=== PATIENT | male | born 1970 | race Caucasian/White ===

== ENCOUNTER 2017-01-18 15:16 | Emergency (ER) | payer BC ==
[~2017-01-18] VITALS: Ht 182.9 cm; Wt 109.4 kg
[~2017-01-18 15:16] MED LIST: DIAZ-165 PO; METH4PAK4 PO; OXYC-57 PO
[2017-01-18 15:19] VITALS: TEMP 36.7; Ht 182.9 cm; Wt 109.4 kg
[2017-01-18] MEDS ORDERED: MECLIZINE HCL 25 MG TAB PO STA (15:33)
[2017-01-18] MEDS ORDERED: SODIUM CHLORIDE 0.9% 1000ML 1,000 ML IV STA ×2 (15:33)
[2017-01-18] MEDS ORDERED: ONDANSETRON INJ 2 MG/ML 2 ML VIAL IV STA (15:33)
--- NOTE | 2017-01-18 15:51 | EMERGENCY ROOM VISIT NOTE ---
History Report prepared by [place]: Saloni Giles Under the Supervision of: Dr. Jim Nash M.D. First contact with patient: 15:22 Chief Complaint: CARDIAC ASSESSMENT Stated Complaint: CHEST PAIN,SOB,NAUSEA History of Present Illness The patient is a 46 year old male who presents to the Emergency Room with complaints of an episode of dizziness beginning one hour prior to arrival. 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 He states that he became very lightheaded, hot, sweaty and nauseous. He then vomited once and began experiencing shortness of breath and chest tightness. The patient states that he became dizzy and describes it as the room feels like it is spinning. The patient states that sitting still improves his symptoms and movement worsens his symptoms. He states that 3 weeks ago he experienced similar symptoms, however at that time the symptoms passed over quickly. He did not vomit at that time. He denies a headache or diarrhea. The patient does not have a history of vertigo. He denies head trauma, recent falls or extremity weakness. The patient is a type 2 diabetic. 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 A total of 10 systems reviewed and were otherwise negative. Past Medical & Surgical Medical Problems: (1) Type 2 diabetes mellitus Family History Patient reports no known family medical history. Social History Smoking Status: Never Smoker Smokeless Tobacco Use: No Marital Status: Housing Status: lives with family Occupation Status: employed Current/Historical Medications Scheduled Labetalol Hcl (Labetalol Hcl), 1 TAB PO BID Loratadine (Claritin), 10 MG PO DAILY Scheduled PRN Meclizine HCl (Meclizine HCl), 1 TAB PO Q6 PRN for Dizziness or Vertigo Allergies Coded Allergies: No Known Allergies (Unverified , 01/18/17) Physical Exam Vital Signs Date Time Temp Pulse Resp B/P (MAP) Pulse Ox O2 Delivery O2 Flow Rate FiO2 01/18/17 19:11 83 20 163/104 98 01/18/17 18:54 83 20 163/104 98 Room Air 01/18/17 18:24 83 19 149/101 95 Room Air 01/18/17 17:32 87 20 152/99 96 Room Air 01/18/17 16:40 96 20 162/98 97 Room Air 99 166/104 101 167/107 01/18/17 16:37 105 01/18/17 16:31 99 18 157/111 96 Room Air 01/18/17 16:29 Room Air 01/18/17 15:19 36.7 109 18 188/120 96 Room Air Physical Exam GENERAL: Patient is in no acute distress. HEENT: No acute trauma, normocephalic atraumatic, PERRL, no nystagmus, mucous membranes moist, no nasal congestion, no scleral icterus. NECK: No stridor, no adenopathy, no meningismus, trachea is midline. LUNGS: Clear to auscultation bilaterally, no wheeze, no rhonchi, breath sounds equal. HEART: Without murmurs gallops or rubs, regular rate and rhythm. ABDOMEN: Soft, nontender, bowel sounds positive, no hernias, no peritonitis. EXTREMITIES: No cyanosis or edema, full range of motion of all the joints without pain or difficulty, no signs for acute trauma. NEUROLOGIC: Oriented x 3, no acute motor or sensory deficits, no focal weakness. No facial droop or speech slur, no pronator drift or cerebellar dysfunction. SKIN: No rash, no jaundice, no diaphoresis. Medical Decision & Procedures ER Provider Diagnostic Interpretation: Radiology results as stated below per my review and radiologist interpretation: CT SCAN OF THE BRAIN WITHOUT IV CONTRAST CLINICAL HISTORY: Weakness. Change in mental status. COMPARISON STUDY: No priors. TECHNIQUE: Unenhanced axial CT scan of the brain is performed from the vertex to the skull base. Automated dose control exposure was utilized. CT DOSE: 614.27 mGy.cm FINDINGS: Brain parenchyma: The brain parenchyma is normal in appearance. There is no hemorrhage, mass effect, or evidence of acute territorial ischemia by CT criteria. Whipple-white matter is preserved. No extra-axial fluid collection is seen. Ventricles, sulci, cisterns: Normal in configuration. Intracranial vasculature: The visualized intracranial vasculature at the skull base is normal in appearance. Calvarium: Unremarkable. Sinuses and mastoids: There is mucosal thickening within a posterior left ethmoid sinus. The remaining visualized paranasal sinuses are clear. The mastoid air cells are well pneumatized. Orbits: The bony orbits are grossly intact. IMPRESSION: No acute intracranial abnormality. Electronically signed by: Jim Grady M.D. 01/18/2017 4:22 PM Dictated Date/Time: 01/18/2017 4:20 PM CHEST ONE VIEW PORTABLE CLINICAL HISTORY: Altered mental status ATYPICAL CHEST PAIN, SHORTNESS OF BREATH. COMPARISON STUDY: No previous studies for comparison. FINDINGS: The heart is normal in size. There is hilar enlargement. There is increased soft tissue at the level of the left AP window. There is a mild lobular contour of the right mediastinal tissues. Mediastinal and hilar adenopathy is suspected. CT scanning is recommended in follow-up. There is no failure. There is no focal pulmonary consolidation. There are no pleural effusions.[ IMPRESSION: Suspected mediastinal and hilar lymphadenopathy. CT scanning is recommended in follow-up Electronically signed by: Guzman Gonzalez M.D. 01/18/2017 3:48 PM Dictated Date/Time: 01/18/2017 3:47 PM Laboratory Results 01/18/17 16:05 Red Blood Count 5.27, Mean Corpuscular Volume 85.2, Mean Corpuscular Hemoglobin 29.6, Mean Corpuscular Hemoglobin Concent 34.7, Mean Platelet Volume 9.3, Neutrophils (%) (Auto) 69.0, Lymphocytes (%) (Auto) 17.9, Monocytes (%) (Auto) 8.8, Eosinophils (%) (Auto) 3.5, Basophils (%) (Auto) 0.5, Neutrophils # (Auto) 4.55, Lymphocytes # (Auto) 1.18, Monocytes # (Auto) 0.58, Eosinophils # (Auto) 0.23, Basophils # (Auto) 0.03 01/18/17 16:05 Test 01/18/17 16:05 01/18/17 16:09 White Blood Count 6.59 K/uL (4.8-10.8) Red Blood Count 5.27 M/uL (4.7-6.1) Hemoglobin 15.6 g/dL (14.0-18.0) Hematocrit 44.9 % (42-52) Mean Corpuscular Volume 85.2 fL (80-100) Mean Corpuscular Hemoglobin 29.6 pg (25-34) Mean Corpuscular Hemoglobin Concent 34.7 g/dl (32-36) Platelet Count 231 K/uL (130-400) Mean Platelet Volume 9.3 fL (7.4-10.4) Neutrophils (%) (Auto) 69.0 % Lymphocytes (%) (Auto) 17.9 % Monocytes (%) (Auto) 8.8 % Eosinophils (%) (Auto) 3.5 % Basophils (%) (Auto) 0.5 % Neutrophils # (Auto) 4.55 K/uL (1.4-6.5) Lymphocytes # (Auto) 1.18 K/uL (1.2-3.4) Monocytes # (Auto) 0.58 K/uL (0.11-0.59) Eosinophils # (Auto) 0.23 K/uL (0-0.5) Basophils # (Auto) 0.03 K/uL (0-0.2) RDW Standard Deviation 41.4 fL (36.4-46.3) RDW Coefficient of Variation 13.2 % (11.5-14.5) Immature Granulocyte % (Auto) 0.3 % Immature Granulocyte # (Auto) 0.02 K/uL (0.00-0.02) Anion Gap 9.0 mmol/L (3-11) Est Creatinine Clear Calc Drug Dose 122.9 ml/min Estimated GFR () 108.8 Estimated GFR (Non- 93.9 BUN/Creatinine Ratio 9.1 (10-20) Calcium Level 8.4 mg/dl (8.5-10.1) Total Bilirubin 0.5 mg/dl (0.2-1) Aspartate Amino Transf (AST/SGOT) 21 U/L (15-37) Alanine Aminotransferase (ALT/SGPT) 35 U/L (12-78) Alkaline Phosphatase 72 U/L (45-117) Total Protein 8.0 gm/dl (6.4-8.2) Albumin 3.7 gm/dl (3.4-5.0) Globulin 4.3 gm/dl (2.5-4.0) Albumin/Globulin Ratio 0.9 (0.9-2) Thyroid Stimulating Hormone (TSH) 1.290 uIu/ml (0.300-4.500) Bedside Troponin I 0.000 ng/ml (0-0.045) Laboratory results reviewed by me. Medications Administered Medications (Trade) Dose Ordered Sig/Chloe Route Start Time Stop Time Status Last Admin Dose Admin Ondansetron HCl (Zofran Inj) 4 mg NOW STAT IV 01/18/17 15:33 01/18/17 15:35 DC 01/18/17 16:04 4 MG Sodium Chloride 1,000 ml @ 999 mls/hr Q1H1M STAT IV 01/18/17 15:33 01/18/17 16:33 DC 01/18/17 16:04 999 MLS/HR Sodium Chloride 1,000 ml @ 200 mls/hr Q5H STAT IV 01/18/17 15:33 01/18/17 20:28 DC 01/18/17 17:54 200 MLS/HR Meclizine HCl (Antivert Tab) 25 mg NOW STAT PO 01/18/17 15:33 01/18/17 15:36 DC 01/18/17 16:04 25 MG Labetalol HCl (Normodyne IV) 20 mg NOW STAT IV 01/18/17 16:39 01/18/17 16:40 DC 01/18/17 17:42 20 MG Labetalol HCl (Normodyne Tab) 100 mg NOW ONCE PO 01/18/17 18:45 01/18/17 18:46 DC 01/18/17 18:52 100 MG ECG Indication: other (dizziness) Rate (beats per minute): 97 Rhythm: normal sinus Findings: no acute ischemic change, no ectopy ED Course 1527: The patient was evaluated in room A11. A complete history and physical exam was performed. 1533: Antivert Tab 25 mg PO, Sodium Chloride 1,000 ml @ 200 mls/hr IV, Sodium Chloride 1,000 ml @ 999 mls/hr IV, Zofran Inj 4 mg IV. 1639: Normodyne IV 20 mg IV. 1730: I reevaluated the patient. 1747: The patient has sarcoidosis which is why his chest X-Ray is abnormal. 1808: Orthostatic vitals are negative. 1843: The patient is feeling well and would like to go home. 1845: Normodyne Tab 100 mg PO. 1853: Reevaluated the patient. Discussed results and discharge instructions: He verbalized understanding and agreement. The patient is ready for discharge. Medical Decision The patient is a 46 year old male who presents to the ED with complaints of dizziness. Differential diagnoses considered include stroke, vertigo, electrolyte imbalance, dehydration, viral illness, dysrhythmia, anemia, infection. There is no leukocytosis or concerning anemia. Renal panel testing shows a mild hyperglycemia, the patient carries a history of diabetes. No kidney failure. No hepatitis. The patient appears to be in a euthyroid state. EKG shows a normal sinus rhythm, no acute ischemia. Cardiac enzyme testing times one is not consistent with acute cardiac injury. Orthostatic vital signs are negative. Chest film shows hilar adenopathy-the patient does have sarcoidosis. There was no pneumonia. Brain CT shows no acute bleed or mass effect. On exam, there were no focal neurologic deficits. The patient was noted to be hypertensive. The patient received IV saline, IV Zofran and oral meclizine. He eventually was given IV labetalol and then a dose of oral labetalol. The patient's blood pressure is somewhat improved, his symptoms have resolved and he is able to walk around without discomfort. He has no trouble with his balance, he no longer feels dizzy. The patient likely has vertigo, I suspect the elevated blood pressure could be part of the issue as well. He feels well now, he would like to be discharged home. I did talk with him at length about seeing his doctor for his blood pressure and symptoms. He will return for worsening symptoms. He is being prescribed meclizine for the dizziness, labetalol for his blood pressure. Medication Reconciliation: I attest that I have personally reviewed the patient' s current medication list. Blood Pressure Screening: Patient was found to have an elevated blood pressure and was referred to their primary doctor for recheck and further treatment. Impression Primary Impression: Vertigo Additional Impression: Hypertension Scribe Attestation The scribe's documentation has been prepared under my direction and personally reviewed by me in its entirety. I confirm that the note above accurately reflects all work, treatment, procedures, and medical decision making performed by me. Departure Information Dispostion Home / Self-Care Prescriptions Meclizine HCl (Meclizine HCl) 25 Mg Tab 1 TAB PO Q6 Y for Dizziness or Vertigo, #15 TAB Prov: Jim Nash M.D. 01/18/17 Labetalol Hcl (LABETALOL HCL) 100 Mg Tab 1 TAB PO BID for 30 Days, #60 TAB 5 Refills Prov: Jim Nash M.D. 01/18/17 Referrals Arcadio Linder III, M.D. (PCP) Forms IMPORTANT VISIT INFORMATION, Work Instructions Patient Instructions My [facility] Additional Instructions Labetalol 2x per day for the blood pressure Meclizine 1 tab every 6 hours for dizziness stay well hydrated rest see your doctor this week for a recheck and blood pressure check return if worsening Problem Qualifiers
[2017-01-18 16:19] LABS: BASO % 0.5 %; BASO ABS # 0.03 K/uL (0-0.2); COMPLETE YES; EOS % 3.5 %; HEMATOCRIT 44.9 % (42-52); IG% 0.3 %; LYMPH % 17.9 %; LYMPH ABS # 1.18 K/uL (1.2-3.4); MEAN CELL VOLUME 85.2 fL (80-100); MEAN CORPUSCULAR HEMOGLOBIN 29.6 pg (25-34); MEAN CORPUSCULAR HGB CONC 34.7 g/dl (32-36); MEAN PLATELET VOLUME 9.3 fL (7.4-10.4); MONO % 8.8 %; PLATELET COUNT 231 K/uL (130-400); RED BLOOD COUNT 5.27 M/uL (4.7-6.1); WHITE BLOOD COUNT 6.59 K/uL (4.8-10.8)
--- NOTE | 2017-01-18 16:23 | DIAGNOSTIC IMAGING REPORT ---
CT SCAN OF THE BRAIN WITHOUT IV CONTRAST CLINICAL HISTORY: Weakness. Change in mental status. COMPARISON STUDY: No priors. TECHNIQUE: Unenhanced axial CT scan of the brain is performed from the vertex to the skull base. Automated dose control exposure was utilized. CT DOSE: 614.27 mGy.cm FINDINGS: Brain parenchyma: The brain parenchyma is normal in appearance. There is no hemorrhage, mass effect, or evidence of acute territorial ischemia by CT criteria. Whipple-white matter is preserved. No extra-axial fluid collection is seen. Ventricles, sulci, cisterns: Normal in configuration. Intracranial vasculature: The visualized intracranial vasculature at the skull base is normal in appearance. Calvarium: Unremarkable. Sinuses and mastoids: There is mucosal thickening within a posterior left ethmoid sinus. The remaining visualized paranasal sinuses are clear. The mastoid air cells are well pneumatized. Orbits: The bony orbits are grossly intact. IMPRESSION: No acute intracranial abnormality. Electronically signed by: Jim Grady M.D. 01/18/2017 4:22 PM Dictated Date/Time: 01/18/2017 4:20 PM
[2017-01-18] MEDS ORDERED: LABETALOL HCL IV 5 MG/ML 20ML IV STA (16:39)
[2017-01-18 16:44] LABS: BUN/CREATININE RATIO 9.1 (10-20); CALCIUM 8.4 mg/dl (8.5-10.1); CREATININE 0.97 mg/dl (0.60-1.40); POTASSIUM 3.8 mmol/L (3.5-5.1)
[2017-01-18 16:53] LABS: ALB/GLOB RATIO 0.9 (0.9-2); THYROID STIMULATING HORMONE 1.29 uIu/ml (0.300-4.500)
[2017-01-18] MEDS ORDERED: LABETALOL HCL 100 MG TAB PO ONE (18:45)
[2017-01-18] MEDS ORDERED: ANT25 PO (18:52)
[2017-01-18] MEDS ORDERED: LABE100T23 PO (18:52)
[2017-01-18 19:11] VITALS: BP 163/104; PULSE 83; O2SAT 98
[2017-02-09] MEDS ORDERED: CLR10 PO (16:52)
== END 2017-01-18 19:11 | disposition home or self-care (01) ==
LOC: C.EDB 15:18 → C.EDA 19:11
DX: R42 Dizziness and giddiness (principal); I10 Essential (primary) hypertension; E11.9 Type 2 diabetes mellitus without complications; Z79.899 Other long term (current) drug therapy

== ENCOUNTER 2017-02-09 21:02 | Emergency (ER) | payer BC ==
[~2017-02-09] VITALS: Ht 180.3 cm; Wt 105.0 kg
[~2017-02-09 21:02] MED LIST changes: +ANT25 PO; +CLR10 PO; -DIAZ-165 PO; +LABE100T23 PO; -METH4PAK4 PO; -OXYC-57 PO
[2017-02-09 21:06] VITALS: TEMP 36.8; Ht 180.3 cm; Wt 105.0 kg
[2017-02-09] MEDS ORDERED: SODIUM CHLORIDE 0.9% 1000ML 1,000 ML IV STA ×2 (21:35)
[2017-02-09] MEDS ORDERED: KETOROLAC TROMETHAMINE 30 MG/ML VIAL IV STA (21:35)
[2017-02-09] MEDS ORDERED: MoRPHine SULFATE 4 MG/ML 1 ML CARP\\VIAL IV STA (21:35)
[2017-02-09] MEDS ORDERED: ONDANSETRON INJ 2 MG/ML 2 ML VIAL IV STA (21:35)
[2017-02-09 21:43] LABS: BASO % 0.4 %; BASO ABS # 0.03 K/uL (0-0.2); COMPLETE YES; EOS % 3.2 %; HEMATOCRIT 44.7 % (42-52); IG% 0.1 %; LYMPH % 17.2 %; MEAN CELL VOLUME 85.5 fL (80-100); MEAN CORPUSCULAR HEMOGLOBIN 30.2 pg (25-34); MEAN CORPUSCULAR HGB CONC 35.3 g/dl (32-36); MEAN PLATELET VOLUME 9.2 fL (7.4-10.4); MONO % 7.2 %; NEUT % 71.9 %; PLATELET COUNT 240 K/uL (130-400); RED BLOOD COUNT 5.23 M/uL (4.7-6.1); WHITE BLOOD COUNT 8.14 K/uL (4.8-10.8)
[2017-02-09] MEDS ORDERED: LABE100T23 PO (21:46)
[2017-02-09 21:48] VITALS: O2SAT 95
[2017-02-09 21:56] LABS: CALCIUM 9.5 mg/dl (8.5-10.1); CREATININE 1.5 mg/dl (0.60-1.40); POTASSIUM 4.5 mmol/L (3.5-5.1)
--- NOTE | 2017-02-09 22:38 | DIAGNOSTIC IMAGING REPORT ---
ABDOMEN AND PELVIS CT WITHOUT CONTRAST CT DOSE: 2019.22 mGy.cm HISTORY: right flank pain TECHNIQUE: Multiaxial CT images of the abdomen and pelvis were performed without the use of intravenous and oral contrast according to the standard department stone protocol. COMPARISON STUDY: None. FINDINGS: There are 2 subcentimeter nodules within the right lower lobe with the largest measuring 6 mm. Bilateral hilar and subcarinal/mediastinal lymphadenopathy. Dominant subcarinal lymph node measures 3.1 x 2.1 cm. No suspicious lytic or blastic osseous lesions. Mild hepatic steatosis. The unenhanced spleen, adrenal glands, pancreas, gallbladder, and left kidney are unremarkable. Mild right perinephric edema. Mild right hydroureteronephrosis. Punctate stone either within or just beyond the right ureterovesical junction. This is best seen on image 157. Mild bladder wall thickening is likely due to underdistention. No renal calculi identified. There is periportal, retroperitoneal, gastrohepatic, perisplenic, bilateral iliac, and left inguinal lymphadenopathy. Dominant left external iliac lymph node measures 2.6 x 1.6 cm. Dominant portacaval lymph node measures 4.6 x 1.8 cm. Dominant gastrohepatic lymph node measures 2.4 x 1.6 cm. Suboptimal evaluation for bowel pathology due to the lack of intravenous and oral contrast. However, there is no definite bowel wall thickening or obstruction. Normal appendix. IMPRESSION: 1. A punctate stone either within or beyond the right ureterovesical junction. There is mild right hydroureteronephrosis. 2. No renal calculi identified. 3. Lymphadenopathy within the chest, abdomen, and pelvis as described above. This is highly suspicious for a neoplastic process such as lymphoma. 4. There are 2 subcentimeter nodules within the right lower lobe with the largest measuring 6 mm. Please refer to the chart below for recommended follow-up. Please refer to below summary of Fleischner criteria recommendations for follow-up of incidental CT nodules (Tiny Goldstein, Guidelines for management of small pulmonary nodules detected on CT scans: A statement from the Fleischner Society, Radiology 237: [phone].) SOLID NODULES Solitary nodule size: <6 mm * Low risk patients: no follow-up needed * high risk patients: optional CT at 12 months Solitary nodule size: 6-8 mm * Low risk patients: follow-up at 6-12 months, then consider further follow-up at 18-24 months * high risk patients: initial follow-up CT at 6-12 months and then at 18-24 months if no change Solitary nodule size: >8 mm * either low or high risk patients - consider follow-up CT at 3 months, and/or CT-PET, and/or biopsy Multiple nodules size: <6 mm * Low risk patients: no routine follow-up * high risk patients: optional CT at 12 months Multiple nodules size: 6-8 mm * Low risk patients: follow-up at 3-6 months, then consider further follow-up at 18-24 months * high risk patients: follow-up at 3-6 months, then at 18-24 months if no change Multiple nodules size: >8 mm * Low risk patients: follow-up at 3-6 months, then consider further follow-up at 18-24 months * high risk patients: follow-up at 3-6 months, then at 18-24 months if no change Note: newly detected indeterminate nodule in persons 35 years of age or older. * Low risk patients: minimal or absent history of smoking and/or other known risk factors * high risk patients: history of smoking or of other known risk factors (e.g. first degree relative with lung cancer, or exposure to asbestos, radon, uranium) * if a nodule up to 8 mm is partly solid or is ground glass further follow-up is required after 24 months to exclude possible slow growing adenocarcinoma (CHARMAINE) SUBSOLID NODULES Solitary pure ground-glass nodule * nodule size <6 mm - no CT follow-up required * nodule size >=6 mm - follow-up CT at 6-12 months, then every 2 years until 5 years Solitary part-solid nodule * nodule size <6 mm - no CT follow-up required * nodule size >=6 mm - follow-up CT at 3-6 months. If unchanged, and solid component remains <6 mm, then annual follow-up for 5 years Multiple subsolid nodules * nodule size <6 mm - follow-up CT at 3-6 months, consider further follow-up at 2 and 4 years if stable * nodule size >=6 mm - follow-up CT at 3-6 months, subsequent management based on the most suspicious nodule(s) Electronically signed by: Mando Starkey M.D. 02/09/2017 10:37 PM Dictated Date/Time: 02/09/2017 10:28 PM
[2017-02-10 01:11] LABS: URINE APPEARANCE CLOUDY (CLEAR); URINE BILIRUBIN NEG (NEG); URINE COLOR YELLOW; URINE EPITHELIAL CELL AUTO 20-30 /lpf (0-5); URINE NITRITE NEG (NEG); URINE SPECIFIC GRAVITY 1.024 (1.000-1.030); UROBILINOGEN NEG (NEG); ZZUR CULT IF INDIC CLEAN CATCH NO
[2017-02-10 01:15] LABS: MANUAL MICROSCOPIC REQUIRED? NO; REVIEW REQ? NO
[2017-02-10] MEDS ORDERED: OXYC1TAB3 PO (01:39)
[2017-02-10] MEDS ORDERED: ONDANSETRON HOME PACK 4MG OD TAB PO ONE (01:45)
[2017-02-10] MEDS ORDERED: OXYCODONE IR HOME PACK PO ONE (01:45)
[2017-02-10 01:51] VITALS: BP 139/86; PULSE 87; O2SAT 96
--- NOTE | 2017-02-10 05:10 | EMERGENCY ROOM VISIT NOTE ---
History First contact with patient: 21:26 Chief Complaint: FLANK PAIN Stated Complaint: KIDNEY STONE History of Present Illness The patient is a 46 year old male who presents to the Emergency Room with complaints of sudden onset of right flank pain that raised his groin at 6 PM described as aching, ranging in severity currently 8 out of 10. Nothing makes it better or worse. Patient denies chest pain, dyspnea, fever, chills, cough, congestion, penile pain, testicular pain. Patient does have sarcoidosis. Review of Systems See HPI for pertinent positives & negatives. A total of 10 systems reviewed and were otherwise negative. Past Medical/Surgical History Medical Problems: (1) Type 2 diabetes mellitus Family History Patient reports no known family medical history. Social History Smoking Status: Never Smoker Drug Use: none Marital Status: Housing Status: lives with family Occupation Status: employed Current/Historical Medications Scheduled Labetalol Hcl (Labetalol Hcl), 100 MG PO BID Scheduled PRN Loratadine (Claritin), 10 MG PO DAILY PRN for Allergy Symptoms Oxycodone Ir (Roxicodone Ir), 1-2 TAB PO Q4H PRN for Severe Pain Allergies Coded Allergies: No Known Allergies (Unverified , 01/18/17) Physical Exam Vital Signs Date Time Temp Pulse Resp B/P (MAP) Pulse Ox O2 Delivery O2 Flow Rate FiO2 02/10/17 01:51 87 18 139/86 96 02/10/17 00:14 93 18 139/80 95 Room Air 02/09/17 22:27 92 16 158/99 96 Room Air 02/09/17 21:56 89 02/09/17 21:48 95 Room Air 02/09/17 21:06 36.8 82 16 178/98 97 Room Air Pain Rating (0-10): 0 Physical Exam VITALS: Vitals are noted on the nurse's note and reviewed by myself. Vital signs hypertensive GENERAL: Pleasant male who appears in pain, nondiaphoretic, well-developed well- nourished. SKIN: The skin was without rashes, erythema, edema, or bruising. There is no tenting of the skin. Capillary reflex less than 2 seconds. HEAD: Normocephalic atraumatic. EARS: External auditory canals clear, tympanic membranes pearly mejia without erythema or effusion bilaterally. EYES: Pupils equal round and reactive to light and accommodation. Conjunctivae without injection, sclerae without icterus. Extraocular movements intact. NOSE: Patent, turbinates without inflammation or discharge. MOUTH: Mucous membranes moist. Pharynx without erythema or exudate. Uvula midline. Airway patent. Tongue does not deviate. NECK: Supple without nuchal rigidity. No lymphadenopathy. No thyromegaly. Cervical spine is nontender. No JVD. HEART: Regular rate and rhythm without murmurs gallops or rubs. LUNGS: Clear to auscultation bilaterally without wheezes, rales or rhonchi. No dullness to percussion. No retractions or accessory muscle use. ABDOMEN: Positive bowel sounds x 4. Normal tympanic percussion. Soft, nontender, without masses or organomegaly. Cardenas sign negative. No guarding or rebound tenderness. No CVA tenderness MUSCULOSKELETAL: No muscle atrophy, erythema, or edema noted. NEURO: Patient was alert and oriented to person place and time. Normal sensation to light and sharp touch. No focal neurological deficits. Medical Decision & Procedures Laboratory Results 02/09/17 21:25 Red Blood Count 5.23, Mean Corpuscular Volume 85.5, Mean Corpuscular Hemoglobin 30.2, Mean Corpuscular Hemoglobin Concent 35.3, Mean Platelet Volume 9.2, Neutrophils (%) (Auto) 71.9, Lymphocytes (%) (Auto) 17.2, Monocytes (%) (Auto) 7.2, Eosinophils (%) (Auto) 3.2, Basophils (%) (Auto) 0.4, Neutrophils # (Auto) 5.85, Lymphocytes # (Auto) 1.40, Monocytes # (Auto) 0.59, Eosinophils # (Auto) 0.26, Basophils # (Auto) 0.03 02/09/17 21:25 Test 02/09/17 21:25 02/10/17 00:56 White Blood Count 8.14 K/uL (4.8-10.8) Red Blood Count 5.23 M/uL (4.7-6.1) Hemoglobin 15.8 g/dL (14.0-18.0) Hematocrit 44.7 % (42-52) Mean Corpuscular Volume 85.5 fL (80-100) Mean Corpuscular Hemoglobin 30.2 pg (25-34) Mean Corpuscular Hemoglobin Concent 35.3 g/dl (32-36) Platelet Count 240 K/uL (130-400) Mean Platelet Volume 9.2 fL (7.4-10.4) Neutrophils (%) (Auto) 71.9 % Lymphocytes (%) (Auto) 17.2 % Monocytes (%) (Auto) 7.2 % Eosinophils (%) (Auto) 3.2 % Basophils (%) (Auto) 0.4 % Neutrophils # (Auto) 5.85 K/uL (1.4-6.5) Lymphocytes # (Auto) 1.40 K/uL (1.2-3.4) Monocytes # (Auto) 0.59 K/uL (0.11-0.59) Eosinophils # (Auto) 0.26 K/uL (0-0.5) Basophils # (Auto) 0.03 K/uL (0-0.2) RDW Standard Deviation 40.6 fL (36.4-46.3) RDW Coefficient of Variation 13.0 % (11.5-14.5) Immature Granulocyte % (Auto) 0.1 % Immature Granulocyte # (Auto) 0.01 K/uL (0.00-0.02) Anion Gap 5.0 mmol/L (3-11) Est Creatinine Clear Calc Drug Dose 76.7 ml/min Estimated GFR () 64.2 Estimated GFR (Non- 55.4 BUN/Creatinine Ratio 8.0 (10-20) Calcium Level 9.5 mg/dl (8.5-10.1) Total Bilirubin 0.6 mg/dl (0.2-1) Direct Bilirubin 0.1 mg/dl (0-0.2) Aspartate Amino Transf (AST/SGOT) 23 U/L (15-37) Alanine Aminotransferase (ALT/SGPT) 40 U/L (12-78) Alkaline Phosphatase 79 U/L (45-117) Total Protein 8.1 gm/dl (6.4-8.2) Albumin 3.8 gm/dl (3.4-5.0) Urine Color YELLOW Urine Appearance CLOUDY (CLEAR) Urine pH 5.0 (4.5-7.5) Urine Specific [place] 1.024 (1.000-1.030) Urine Protein NEG (NEG) Urine Glucose (UA) 3+ (NEG) Urine Ketones TRACE (NEG) Urine Occult Blood NEG (NEG) Urine Nitrite NEG (NEG) Urine Bilirubin NEG (NEG) Urine Urobilinogen NEG (NEG) Urine Leukocyte Esterase NEG (NEG) Urine WBC (Auto) 1-5 /hpf (0-5) Urine RBC (Auto) 0-4 /hpf (0-4) Urine Hyaline Casts (Auto) 1-5 /lpf (0-5) Urine Epithelial Cells (Auto) 20-30 /lpf (0-5) Urine Bacteria (Auto) NEG (NEG) Medications Administered Medications (Trade) Dose Ordered Sig/Chloe Route Start Time Stop Time Status Last Admin Dose Admin Morphine Sulfate (MoRPHine SULFATE INJ) 4 mg NOW STAT IV 02/09/17 21:35 02/09/17 21:38 DC 02/09/17 21:43 4 MG Ondansetron HCl (Zofran Inj) 4 mg NOW STAT IV 02/09/17 21:35 02/09/17 21:38 DC 02/09/17 21:42 4 MG Ketorolac Tromethamine (Toradol Inj) 30 mg NOW STAT IV 02/09/17 21:35 02/09/17 21:38 DC 02/09/17 21:42 30 MG Sodium Chloride 1,000 ml @ 999 mls/hr Q1H1M STAT IV 02/09/17 21:35 02/09/17 22:35 DC 02/09/17 21:42 999 MLS/HR Sodium Chloride 1,000 ml @ 125 mls/hr Q8H STAT IV 02/09/17 21:35 02/10/17 01:58 DC 02/09/17 21:42 125 MLS/HR Oxycodone HCl (Roxicodone Immediate Rel 5MG Home Pack) 1 homepack UD ONCE PO 02/10/17 01:45 02/10/17 01:46 DC 02/10/17 01:49 1 HOMEPACK Ondansetron HCl (ZOFRAN ODT 4MG Home Pack) 1 homepack UD ONCE PO 02/10/17 01:45 02/10/17 01:46 DC 02/10/17 01:49 1 HOMEPACK ED Course Prior records/ancillary studies reviewed. Triage Nursing notes reviewed. Additional history obtained from the family. The patient's history was concerning for right flank pain. Differential diagnosis: Etiologies such as renal colic, appendicitis, diverticulitis, mesenteric ischemia, aortic pathology, infections, inflammatory bowel disease, PUD, biliary pathology, UTI, as well as others were entertained. Physical examination findings: As above. ER treatment provided: Morphine, Zofran, IV fluids On reassessment the patient felt better. Diagnostic interpretation by me: The labs revealed hyperglycemia without DKA. Urinalysis revealed no signs of urine infection. There was no sign of UTI. Imaging studies: CT of the abdomen and pelvis as above. [~ rep ct add3]] ABDOMEN AND PELVIS CT WITHOUT CONTRAST CT DOSE: 2019.22 mGy.cm HISTORY: right flank pain TECHNIQUE: Multiaxial CT images of the abdomen and pelvis were performed without the use of intravenous and oral contrast according to the standard department stone protocol. COMPARISON STUDY: None. FINDINGS: There are 2 subcentimeter nodules within the right lower lobe with the largest measuring 6 mm. Bilateral hilar and subcarinal/mediastinal lymphadenopathy. Dominant subcarinal lymph node measures 3.1 x 2.1 cm. No suspicious lytic or blastic osseous lesions. Mild hepatic steatosis. The unenhanced spleen, adrenal glands, pancreas, gallbladder, and left kidney are unremarkable. Mild right perinephric edema. Mild right hydroureteronephrosis. Punctate stone either within or just beyond the right ureterovesical junction. This is best seen on image 157. Mild bladder wall thickening is likely due to underdistention. No renal calculi identified. There is periportal, retroperitoneal, gastrohepatic, perisplenic, bilateral iliac, and left inguinal lymphadenopathy. Dominant left external iliac lymph node measures 2.6 x 1.6 cm. Dominant portacaval lymph node measures 4.6 x 1.8 cm. Dominant gastrohepatic lymph node measures 2.4 x 1.6 cm. Suboptimal evaluation for bowel pathology due to the lack of intravenous and oral contrast. However, there is no definite bowel wall thickening or obstruction. Normal appendix. IMPRESSION: 1. A punctate stone either within or beyond the right ureterovesical junction. There is mild right hydroureteronephrosis. 2. No renal calculi identified. 3. Lymphadenopathy within the chest, abdomen, and pelvis as described above. This is highly suspicious for a neoplastic process such as lymphoma. 4. There are 2 subcentimeter nodules within the right lower lobe with the largest measuring 6 mm. Please refer to the chart below for recommended follow-up. It appears that the patient has isolated renal colic from a right sided stone. Patient's pain was under control. He requested to leave. I felt this is reasonable. Patient is known sarcoidosis. He was advised that the CT findings and verbalized understanding of this. He was advised to follow-up urology in a few days or here in the ER sooner for severe pain, fevers, vomiting, worsening signs or symptoms or as needed.By the evaluation outlined above emergent etiologies such as appendicitis, diverticulitis, mesenteric ischemia, aortic pathology, infections, inflammatory bowel disease, PUD, biliary pathology, UTI, as well as others were deemed relatively unlikely. The pt informed about the findings as listed above. All questions were answered and [] pleased with the treatment. Return instructions were outlined and the patient was discharged in stable condition. Outpatient prescription management: Oxy IR 5mg 1-2 po Q4 hrs prn Zofran Referral: The pt was referred to [facility] for follow up care regarding their stone. or The patient was referred back to their primary care physician for follow-up in 2 to 3 days for a recheck of the current condition. Case reviewed with my attending Medical Decision As above Impression Primary Impression: Renal colic on right side Departure Information Dispostion Home / Self-Care Condition GOOD Prescriptions Oxycodone Ir (Roxicodone Ir) 5 Mg Tab 1-2 TAB PO Q4H Y for Severe Pain, #12 TAB initial course Prov: Saima Santos ., DENSI 02/10/17 Referrals Jason Graff M.D. Forms HOME CARE DOCUMENTATION FORM, IMPORTANT VISIT INFORMATION Patient Instructions Kidney Stones - [facility], My [facility] Additional Instructions DO NOT drive, drink alcohol, operate machinery, or perform dangerous activities today. You were given medications in the ER that can affect your ability to safely function or operate a vehicle. Oxycodone Immediate Release (OxyIR) 5mg: Take 1-2 pills every four hours for pain. Avoid alcohol, operating machinery or dangerous equipment, working on ladders or roofs, DRIVING, or situations where being under the influence may be dangerous. It is recommended to use an jkki-beg-vajzoqe stool softener such as Colace, 100mg twice daily while taking this medication to avoid constipation Ibuprofen(Motrin, Advil) may be used for fever or pain. Use 600mg every six hours as needed. Take with food. Avoid using more than 2400mg in a 24 hour period. Do not use 2400mg per day for more than three consecutive days without physician direction. Prolonged inappropriate use can lead to stomach upset or ulcers. This medication can be taken if you need to drive, work, or perform activities which may be dangerous when taking narcotic pain medication. (AND/OR) Acetaminophen(Tylenol) may be used for fever or pain. Use 1000mg every six hours as needed. Avoid using more than 3000mg in a 24 hour period. This medication can be taken if you need to drive, work, or perform activities which may be dangerous when taking narcotic pain medication. Strain your urine and collect all the stones or debris for the urologists. Rest and avoid strenuous activity until your stone passes and symptoms resolve. Drink plenty of fluids. Continue current medications. Return to the ER for worsening abdominal or back pain, vomiting, fevers, passing out, or as needed. Follow up with [facility] tomorrow, [phone], to arrange a visit.
== END 2017-02-10 01:51 | disposition home or self-care (01) ==
LOC: C.EDB 21:03
DX: N23 Unspecified renal colic (principal); E11.9 Type 2 diabetes mellitus without complications; Z79.899 Other long term (current) drug therapy

== ENCOUNTER 2022-05-27 02:52 | Observation (INO) ==
[2022-05-27] MEDS ORDERED: methylPREDNISolone 125 MG/2 ML VIAL IV STA (03:13)
--- NOTE | 2022-05-27 03:13 | Emergency Department Note ---
History of Present Illness General Chief complaint: Respiratory Problems Stated complaint: HARD TO BREATHE Time Seen by Provider: 05/27/22 03:00 History of Present Illness Maximum Pain Intensity: 3 51-year-old male presents emergency department with longstanding history of sarcoidosis hypertension and diabetes. Patient is followed by a research chief engineer in [place]. He called his research chief engineer today and was placed on prednisone he is taken 2 doses. He states that he feels shortness of breath occasionally generalized fatigue and weakness. Patient denies hemoptysis, pleuritic chest p ain or dyspnea on exertion. Patient denies any exposure to COVID he is unvaccinated against COVID-19. Patient presents this evening stating shortness of breath Home Medications Medication Instructions Recorded Confirmed Type lisinopril 10 mg tablet 10 mg PO DAILY 10/27/20 06/11/21 History albuterol sulfate 90 mcg/actuation 2 inh inhalation Q6 PRN Shortness 06/11/21 06/11/21 History aerosol inhaler (Ventolin HFA) Of Breath empagliflozin 25 mg tablet 25 mg PO DAILY 05/27/22 05/27/22 History (Jardiance) mometasone-formoterol HFA 100 2 puff inhalation BID 05/27/22 05/27/22 History mcg-5 mcg/actuation aerosol inhaler (Dulera) prednisone 20 mg tablet 40 mg PO DIRECTED 05/27/22 05/27/22 History tiotropium bromide 1.25 1 puff inhalation DAILY 05/27/22 05/27/22 History mcg/actuation mist for inhalation (Spiriva Respimat) Allergies Allergy/AdvReac Type Severity Reaction Status Date / Time No Known Allergies Allergy Unverified 06/11/21 07:36 Past Med/Surg History Medical History Asthma HLD (hyperlipidemia) Hypertension Sarcoidosis Type 2 diabetes mellitus Surgical History No pertinent past surgical history Family History Other Heart disease Social History Smoking Status: Never smoker Preferred Language: Pashto Feels Safe at Home: Yes Review of Systems A total of 10 systems reviewed and were otherwise negative Constitutional: + body aches; no fever Respiratory: + dyspnea Cardiovascular: no chest pain Physical Exam Vital Signs Vital Signs - 24 hr 05/27/22 02:53 05/27/22 03:10 05/27/22 03:29 Temperature 36.2 C L Temperature Source Temporal Artery Scan Pulse Rate 96 H Pulse Rate from SpO2 Sensor Respiratory Rate 20 Respiratory Effort / Characteristics Non-Labored Respiratory Depth Normal Blood Pressure 149/108 H Blood Pressure Mean 121 Pulse Oximetry 96 Oxygen Delivery Method Room Air Room Air Sepsis Recent Fever Within 48 Hours No Sepsis New/Unexplained Change in Mental Status N/A Sepsis Action Taken by Nursing No Action Required 05/27/22 03:10 05/27/22 03:20 Temperature Temperature Source Pulse Rate 92 H 91 H Pulse Rate from SpO2 Sensor 92 H 89 Respiratory Rate 22 19 Respiratory Effort / Characteristics Respiratory Depth Blood Pressure Blood Pressure Mean Pulse Oximetry 95 96 Oxygen Delivery Method Sepsis Recent Fever Within 48 Hours Sepsis New/Unexplained Change in Mental Status Sepsis Action Taken by Nursing GENERAL: Patient is awake alert in no acute distress patient is resting comfortably and showing no signs of anxiety EYES: The conjunctivae are clear. The pupils are round and reactive. EARS, NOSE, MOUTH AND THROAT: The nose is without any evidence of any deformity. Mucous membranes are moist. Tongue is midline. NECK: The neck is nontender and supple. RESPIRATORY: Normal respiratory effort is noted there is no evidence of wheezing rhonchi or rales CARDIOVASCULAR: Regular rate and rhythm noted there no murmurs rubs or gallops normal S1 normal S2. GASTROINTESTINAL: The abdomen is soft. Abdomen is nontender. PELVIS: The Pelvis is stable. No tenderness to palpation is noted. BACK: No midline tenderness or or step-off noted range of motion in flexion extension as well as rotation no signs of muscle spasm noted MUSCULOSKELETAL/EXTREMITIES: There is no evidence of gross deformity full range of motion is noted in the hips and shoulders. SKIN: There is no obvious evidence of any rash. There are no petechiae, pallor or cyanosis noted. NEUROLOGIC: Patient is awake alert and oriented x3 strength is symmetric Course Reevaluation(s) Reevaluation #1: Patient was started on IV Rocephin and Zithromax was also given IV Solu-Medrol. Patient has a history of sarcoidosis, patient have a right lower lobe infiltrate and was started on IV antibiotics. Patient is resting comfortably not hypoxic. The case was discussed with the [facility] hospitalist for admission Time: 05:21 Administered Medications Azithromycin 500 mg/ Dextrose 255 mls @ 127.5 mls/hr IV NOW STA Stop: 05/27/22 05:52 Last Admin: 05/27/22 04:40 Dose: 127.5 mls/hr Documented By: GUERITA Discontinued Medications Ceftriaxone Sodium (Rocephin) 2,000 mg in 70 mls @ 140 mls/hr IV NOW STA Stop: 05/27/22 04:22 Last Admin: 05/27/22 04:19 Dose: 140 mls/hr Documented By: GUERITA Methylprednisolone (Methylprednisolone 125 Mg/2 Ml Vial) 125 mg IV NOW STA Stop: 05/27/22 03:14 Last Admin: 05/27/22 03:17 Dose: 125 mg Documented By: RAGINI Medical Decision Making Medical Records Attestation: I reviewed the patient's medical records. Home Medications Current Medication List: was personally reviewed by me Laboratory Data Attestation: I reviewed the patient's lab results. Result diagrams: 05/27/22 03:15 05/27/22 03:15 Lab Results 05/27/22 05/27/22 05/27/22 Range/Units 03:15 03:15 03:20 WBC 5.40 (4.8-10.8) K/ul RBC 6.03 (4.63-6.08) M/uL Hgb 17.0 (14.0-18.0) g/dl Hct 50.7 (40.1-51.0) % MCV 84.1 (80.0-100.0) fL MCH 28.2 (25.0-34.0) pg MCHC 33.5 (32.0-36.0) g/dL RDW Std Deviation 43.4 (36.4-46.3) fL RDW Coeff of Lisa 14.3 (11.5-14.5) % Plt Count 288 (130-400) K/uL MPV 8.8 L (9.4-12.4) fL Immature Gran % (Auto) 0.4 % Neut % (Auto) 75.8 % Lymph % (Auto) 15.4 % [place] % (Auto) 7.6 % Eos % (Auto) 0.4 % Baso % (Auto) 0.4 % Neut # (Auto) 4.10 (1.4-6.5) K/uL Lymph # (Auto) 0.83 L (1.2-3.4) K/uL [place] # (Auto) 0.41 (0.24-0.82) K/uL Eos # (Auto) 0.02 (0-0.50) K/uL Baso # (Auto) 0.02 (0-0.2) K/uL Immature Gran # (Auto) 0.02 (0.00-0.02) K/uL Sodium 134 L (136-145) mmol/L Potassium 4.4 (3.5-5.1) mmol/L Chloride 98 (98-107) mmol/L Carbon Dioxide 22 (21-32) mmol/L Anion Gap 14 H (3-11) BUN 19 (6-23) mg/dl Creatinine 0.91 (0.6-1.4) mg/dl Est Cr Clr Drug Dosing Not Reportable Est GFR ( Amer) 113.5 ml/min Est GFR (Non-Af Amer) 97.9 ml/min BUN/Creatinine Ratio 20.9 H (10-20) Glucose 236 H (70-99(Fasting)) mg/dl Calcium 10.3 H (8.5-10.1) mg/dl Total Bilirubin 0.8 (0.2-1.0) mg/dl AST 19 (13-39) U/L ALT 21 (7-52) U/L Alkaline Phosphatase 183 H (34-104) U/L Total Protein 8.4 H (6.0-8.3) gm/dl Albumin 3.6 (3.4-5.0) gm/dl Globulin 4.8 H (2.5-4.0) gm/dl Albumin/Globulin Ratio 0.8 L (0.9-2) SARS-CoV-2, RNA, NAAT NEGATIVE (NEGATIVE) Imaging Data Attestation: I personally reviewed and interpreted this imaging study as follows: ECG Data Attestation: I personally reviewed and interpreted this ECG as follows: Additional Comments: EKG interpreted by me normal sinus rhythm rate of 93 normal intervals normal axis no obvious ST segment elevation or depression MDM Narrative Medical decision making differential diagnosis includes upper respiratory tract infection, pneumonia, bronchitis, COVID, metabolic derangement, dehydration, an emia. Plan is to check labs, EKG, chest x-ray, observe Patient was evaluated for shortness of breath has a history of sarcoid there is a questionable right lower lobe infiltrate on x-ray he was given antibiotics and steroids. The case was discussed with the hospitalist from [facility]. My concern is that the patient may have an early pneumonia due to his symptoms and his history of lung disease. He will be admitted for further evaluation and treatment Impression & Plan Community acquired pneumonia, Sarcoidosis of lung Discharge Plan Visit Data Chief Complaint: Respiratory Problems Stated Complaint: HARD TO BREATHE ED Provider: Ferny Moss Discharge Problem: Community acquired pneumonia, Sarcoidosis of lung Patient Disposition: Being Evaluated by Hospitalist Forms Stand Alone Forms: My [facility] Prescriptions Prescriptions: No Action lisinopril 10 mg tablet 10 mg PO DAILY albuterol sulfate [Ventolin HFA] 90 mcg/actuation HFA aerosol inhaler 2 inh INHALATION Q6 MDD 8 puffs PRN (Reason: Shortness Of Breath) prednisone 20 mg tablet 40 mg PO DIRECTED Rx Instructions: prednisone 40mg po daily x 5 days Dulera 100-5 mcg/actuation HFA aerosol inhaler 2 puff INHALATION BID Jardiance 25 mg tablet 25 mg PO DAILY Spiriva Respimat 1.25 mcg/actuation mist 1 puff INHALATION DAILY Referrals Referrals: Arcadio Linder MD [Primary Care Provider] -
[2022-05-27 03:34] LABS: Basophils # (auto) 0.02 K/uL (0-0.2); Basophils % (auto) 0.4 %; Eosinophils # (auto) 0.02 K/uL (0-0.50); Eosinophils % (auto) 0.4 %; Hematocrit (blood only) 50.7 % (40.1-51.0); Immature Granulocytes # (auto) 0.02 K/uL (0.00-0.02); Immature Granulocytes % (auto) 0.4 %; Lymphocytes # (auto) 0.83 K/uL (1.2-3.4); Lymphocytes % (auto) 15.4 %; Mean Corpuscular Hemoglobin 28.2 pg (25.0-34.0); Mean Corpuscular Hgb Conc 33.5 g/dL (32.0-36.0); Mean Corpuscular Volume 84.1 fL (80.0-100.0); Mean Platelet Volume 8.8 fL (9.4-12.4); Monocytes # (auto) 0.41 K/uL (0.24-0.82); Monocytes % (auto) 7.6 %; Neutrophils % (auto) 75.8 %; Platelet Count 288 K/uL (130-400); RDW Coefficient of Variation 14.3 % (11.5-14.5); RDW Standard Deviation 43.4 fL (36.4-46.3); Red Blood Count 6.03 M/uL (4.63-6.08)
[2022-05-27 03:53] LABS: Alanine Aminotransferase 21 U/L (7-52); Albumin Globulin Ratio 0.8 (0.9-2); Albumin Level 3.6 gm/dl (3.4-5.0); Alkaline Phosphatase 183 U/L (34-104); Anion Gap 14 (3-11); Aspartate Aminotransferase 19 U/L (13-39); BUN Creatinine Ratio 20.9 (10-20); Bilirubin,Total 0.8 mg/dl (0.2-1.0); Blood Urea Nitrogen 19 mg/dl (6-23); Calcium 10.3 mg/dl (8.5-10.1); Carbon Dioxide 22 mmol/L (21-32); Chloride 98 mmol/L (98-107); Est GFR (African American) 113.5 ml/min; Est GFR (Non-African American) 97.9 ml/min; Globulin 4.8 gm/dl (2.5-4.0); Glucose 236 mg/dl (70-99(Fasting)); Potassium 4.4 mmol/L (3.5-5.1); Sodium 134 mmol/L (136-145); Total Protein 8.4 gm/dl (6.0-8.3)
[2022-05-27] MEDS ORDERED: cefTRIAXone SODIUM 2,000 MG/70 ML BAG IV STA (03:53)
[2022-05-27] MEDS ORDERED: AZITHROMYCIN 500 MG in DEXTROSE 5% 250 ML IV STA (03:53)
[2022-05-27] MEDS ORDERED: OPTIRAY 320 500ml IV ONE (05:58)
[2022-05-27] MEDS ORDERED: NITROGLYCERIN SL 0.4 MG/TAB TAB SL PRN (06:27)
[2022-05-27] MEDS ORDERED: ACETAMINOPHEN 325 MG TAB PO PRN (06:27)
[2022-05-27] MEDS ORDERED: ALBUTEROL HFA 8 GM INHALER INH PRN (06:27)
[2022-05-27] MEDS ORDERED: POLYETHYLENE (MIRALAX) 17 GM PACK PO PRN (06:27)
[2022-05-27] MEDS ORDERED: SODIUM CHLORIDE 0.9% 1000ML 1,000 ML IV SCH (06:27)
--- NOTE | 2022-05-27 06:48 | History and Physical Report ---
DATE OF ADMISSION: 05/27/2022. CHIEF COMPLAINT: Shortness of breath. HISTORY OF PRESENT ILLNESS: This is a 51-year-old male with past medical history significant for type 2 diabetes, hyperlipidemia, sinus congestion, history of COPD/Asthma, sarcoidosis, who presents with shortness of breath. The patient says he is getting short of breath since last 2 weeks, it is progressively getting worse. He is not able to ambulate much, because of shortness of breath. He does have pain, he says it is in his lungs, mostly on the right lung, even when taking regular breaths. He has chronic cough, but the cough tone has changed. Denies any fever or chills. Currently, he is saturating okay on room air. He was prescribed prednisone by pulmonary at [place] for 5 days . He just took one dose. As it is not getting better, he came to the hospital here. He currently has some mild headache.No blurred visions, no earache. He has chronic runny nose. Had sore throat the last week a couple of days, but resolved now. No difficulty swallowing. Appetite is okay. No nausea, no vomiting. Has some abdominal pain when he bends down. Has some mild back pain, which is chronic. Normal bowel and bladder movements. Denies any blood in the stools or black stools, no burning micturition. ALLERGIES: No known drug allergies. PAST MEDICAL HISTORY: As mentioned above. PAST SURGICAL HISTORY: Bronchoscopy, colonoscopy, dental surgery, injection of lumbosacral spine, bilateral elbow surgery. MEDICATIONS: The patient is on prednisone 40 mg p.o. daily for 5 days, Jardiance 25 mg p.o. daily, lisinopril 10 mg p.o. daily, Dulera 100/5 two puffs b.i.d., Spiriva Respimat 2 puffs once daily, Ventolin 2 puffs every 4 hours p.r.n. FAMILY HISTORY: Significant for father had throat cancer; mother has diabetes, hyperlipidemia; maternal grandfather, DE; paternal grandfather had DE; paternal grandmother had DE. SOCIAL HISTORY: , snuffs tobacco one can per week. Alcohol, rare. No drug use. REVIEW OF SYSTEMS: As per HPI. Rest of the review of systems is negative. PHYSICAL EXAMINATION: GENERAL: The patient is of moderate build, not in acute distress. VITAL SIGNS: Temperature 36.2, pulse 91, respiratory rate 19, blood pressure 149/108, oxygen 96% on room air. HEENT: Pupils equal, round, and reactive to light. Oral mucosa moist. NECK: No JVD, no neck masses. CARDIOVASCULAR: S1 and S2 heard. Regular rate and rhythm. No murmur, no gallop. RESPIRATORY SYSTEM: Normal AP diameter. Mild bibasilar rales. Currently no wheezing. ABDOMEN: Soft, bowel sounds present, nontender, no distention. CENTRAL NERVOUS SYSTEM: Cranial nerves II-XII grossly intact, nonfocal. EXTREMITIES: Trace pedal edema, no erythema seen. LABORATORY DATA: WBC 5.4, hemoglobin 17, hematocrit 50.7, platelets 288. Sodium 134, potassium 4.4, chloride 98, bicarbonate 22, BUN 19, creatinine 0.91, serum glucose 236, calcium 10.3, total bilirubin 0.8, AST 19, ALT 21, alkaline phosphatase 183, SARS-CoV-2 rapid test negative. IMAGING DATA: Chest x-ray, right lower lobe, possible infiltrate. EKG: Normal sinus rhythm at a rate of 93, no significant change was found. ASSESSMENT AND PLAN: This is a 51-year-old male who presents with progressive worsening shortness of breath. 1. Shortness of breath: Progressively worsening shortness of breath. History of sarcoidosis, history of questionable chronic obstructive pulmonary disease. Possible sarcoidosis flare or chronic obstructive pulmonary disease /Asthma exacerbation, possible pneumonia. Will get a CTA chest to rule out PE and also to get a better picture for any underlying pneumonia. ER gave steroids and Rocephin. Will continue with IV Rocephin and IV doxycycline for possible pneumonia and IV Solu-Medrol 40 mg t.i.d., nebs around the clock and p.r.n. Follow the CT chest and closely monitor in the tele floor. 2. Chest pain: The patient states has lung pain. Will follow serial cardiac enzymes, CTA chest. . Will follow the repeat EKG. If any concern, will get an echocardiogram. 3. History of diabetes: Hold Jardiance. Placed him on insulin sliding scale. Follow the HbA1c level.Will follow the blood sugar closely as patient is started on steroids. 4. Hypertension: Continue lisinopril. 5. Deep venous thrombosis prophylaxis. Placed on Lovenox. DISPOSITION: Closely monitor in the tele floor. Level 1 full code. Expect to discharge home and follow with family doctor. Job ID: [id number] [facility]Mar
[2022-05-27] MEDS ORDERED: XOPENEX/ATROVENT 1.25mg/0.5MG NEB COMBO NEB SCH (07:00)
[2022-05-27] MEDS ORDERED: DOXYCYCLINE HYCLATE 100 MG in DEXTROSE 5% 100 ML IV SCH (07:00)
--- NOTE | 2022-05-27 07:00 | CT Scan Report ---
CT ANGIOGRAPHY OF THE CHEST, PULMONARY EMBOLUS PROTOCOL CLINICAL HISTORY: Right-sided chest pain. Shortness of both breath. COMPARISON STUDY: Chest CT June 11, 2021. Chest radiograph performed earlier today. TECHNIQUE: Following IV administration of 104 mL of Optiray, helical axial images of the chest were o btained utilizing the pulmonary embolus protocol. Maximal intensity projections and sagittal and cor onal reformats were viewed on an independent 3D workstation. IV contrast was administered without co mplication. Automated exposure control was utilized for the study. A dose lowering technique was ut ilized adhering to the principles of ALARA. CT DOSE: 455.72 mGy.cm FINDINGS: No pulmonary emboli are identified. There is no thoracic aortic dissection. Size of the he art is normal. There is no pericardial effusion. Mild bilateral axillary lymphadenopathy is similar t o prior exam. Bulky mediastinal and bilateral hilar lymphadenopathy has slightly decreased since CT o f June 11, 2021. Index right paratracheal lymph node on image 183 of 263 measures 2.3 cm in short axis diameter. It previously measured 2.6 cm. Multiple partially calcified lymph nodes are present. T here is no pneumothorax or pleural effusion. There is no consolidation to suggest pneumonia. Innumera ble small nodules within a lymphatic distribution throughout the lungs have progressed since CT of [place] tob2020. Several nodular irregular opacities within the lungs are similar to prior exam. Centr al airways are mildly narrowed by the lymphadenopathy but patent. There is no cavitation. Visualized portions of the upper abdomen demonstrate splenomegaly. The liver is cirrhotic appearing. Innumerable hypodense foci within the liver and spleen are again noted. These findings were shown on prior CT. IMPRESSION: 1. No pulmonary emboli identified. 2. Findings suggestive of sarcoidosis within the chest. Progression of innumerable nodules within the lungs with slight decrease in lymphadenopathy. 3. Cirrhotic appearing liver with innumerable lesions within the liver and spleen compression on prio r exam. This can also be seen in setting of sarcoidosis. ACT 112: Negative or not required by law. Electronically signed by: Jakub Garrett M.D. 05/27/2022 6:57 AM
--- NOTE | 2022-05-27 07:05 | XRay Report ---
XR chest 1V portable CLINICAL HISTORY: Dyspnea. COMPARISON STUDY: Chest radiograph and chest CT June 11, 2021. FINDINGS: No pneumothorax or pleural effusion is present. Cardiomediastinal silhouette is stable. Declan ateral hilar enlargement as well as mediastinal widening are again noted. This is due to lymphadenopa thy shown on chest CT. Reticulonodular interstitial thickening is again noted. No consolidation is id entified. IMPRESSION: Reticulonodular interstitial thickening and bilateral hilar and mediastinal enlargement due to lymphadenopathy shown on prior chest CT. The findings are suggestive of sarcoidosis. No superi mposed consolidation. ACT 112: Negative or not required by law. Electronically signed by: Jakub Garrett M.D. 05/27/2022 7:04 AM
[2022-05-27 07:33] LABS: Basophils # (auto) 0.02 K/uL (0-0.2); Basophils % (auto) 0.3 %; Eosinophils # (auto) 0.01 K/uL (0-0.50); Eosinophils % (auto) 0.1 %; Hematocrit (blood only) 51.1 % (40.1-51.0); Hemoglobin 17.1 g/dl (14.0-18.0); Immature Granulocytes # (auto) 0.04 K/uL (0.00-0.02); Immature Granulocytes % (auto) 0.5 %; Lymphocytes # (auto) 0.63 K/uL (1.2-3.4); Lymphocytes % (auto) 8.2 %; Mean Corpuscular Hemoglobin 27.9 pg (25.0-34.0); Mean Corpuscular Hgb Conc 33.5 g/dL (32.0-36.0); Mean Corpuscular Volume 83.5 fL (80.0-100.0); Mean Platelet Volume 8.8 fL (9.4-12.4); Monocytes # (auto) 0.07 K/uL (0.24-0.82); Monocytes % (auto) 0.9 %; Neutrophils # (auto) 6.89 K/uL (1.4-6.5); Platelet Count 264 K/uL (130-400); RDW Coefficient of Variation 14.6 % (11.5-14.5); RDW Standard Deviation 43.1 fL (36.4-46.3); Red Blood Count 6.12 M/uL (4.63-6.08); White Blood Count 7.66 K/ul (4.8-10.8)
[2022-05-27] MEDS: LEVALBUTEROL HCL 1.25 MG/3 ML NEB NEB PRN ×2 (07:34→14:22)
[2022-05-27] MEDS: IPRATROPIUM BROMIDE NEB SOLN 0.02% 2.5 ML VIAL INH SCH ×2 (07:34→14:22)
[2022-05-27] MEDS: LEVALBUTEROL 1.25MG/0.5ML NEB INH SCH ×2 (07:35→14:22)
[2022-05-27 07:45] LABS: Estimated Average Glucose 146 mg/dl; Hemoglobin A1C 6.7 % (4.5-5.6)
[2022-05-27] MEDS: INSULIN ASPART PER UNIT SC SCH ×2 (07:58→11:41)
[2022-05-27] MEDS ORDERED: ENOXAPARIN INJ 40 MG/0.4 ML SYR SQ SCH (08:00)
[2022-05-27 08:01] LABS: BUN Creatinine Ratio 23.2 (10-20); Calcium 10.3 mg/dl (8.5-10.1); Creatinine Clr Calc Pharmacy 128.1 ml/min; Est GFR (African American) 119.5 ml/min; Est GFR (Non-African American) 103.1 ml/min; Potassium 4.9 mmol/L (3.5-5.1)
--- NOTE | 2022-05-27 08:32 | Pulmonary Consultation ---
Date of Consultation May 27, 2022 Assessment & Plan (1) Sarcoidosis of lung: (2) Abnormal CT scan of lung: (3) Dyspnea: Plan Impression: 51-year-old male with reported history of sarcoid although we do not have information from his [facility] diagnosis over 10 years ago or what e valuation has been conducted in the interim. Specifically, PFTs, lab studies, and the extent of his sarcoid. Based on his radiographic appearance, this appears consistent with stage III (bulky adenopathy as well as parenchymal opacities). It is unclear whether he has disseminated sarcoid/hepatosplenic sarcoid based on his liver findings as these have never been biopsied. He is admitted with shortness of breath but feels better. There is no evidence of pneumonia. Recommendations: 1. Sarcoid: Recommend 40 mg of prednisone a day until he is able to follow-up with his outpatient [facility] in [place]. Can continue inhalers in the form of Breo if it is offering him a clinical benefit as well as albuterol on an as-needed basis. 2. For his sarcoid, would recommend serial pulmonary function testing to ensure no significant decrement in function. Given the frequent exacerbations of prednisone and stage III disease, consideration for steroid sparing agent such as methotrexate, or mycophenolate may be appropriate. Serial LFTs would be appropriate. If the patient has not had biopsy of his liver, GI consultation and consideration for liver biopsy to confirm presence of disseminated sarcoid. Pulmonary does not typically manage disseminated sarcoid and if this is present the patient would need to be seen by a sarcoid specialty Center or a shift superintendent caustic cresylate with expertise in managing disseminated sarcoid. 3. Annual eye exam is recommended. 4. I see no evidence of pneumonia. Antibiotics can be discontinued at this point time. 5. From a pulmonary perspective, the patient does not require additional inpatient stay and can be dismissed from the hospital to follow-up with his outpatient pulmonary team in [place]. Pulmonary will sign off at this point time. Feel free to contact us if we can be of additional assistance. Recommendations were discussed with the patient at bedside History of Present Illness Attending Physician: Nicanor Ugalde MD History of Present Illness Asked by hospitalist to evaluate this patient with history of sarcoid admitted with shortness of breath and abnormal CT scan. History is obtained from discussion with the patient reviewed electronic medical record. Patient is a 51-year-old male who reports he was diagnosed with sarcoid at [facility] over 10 years ago. He is followed by [facility] in [place] and states he is intermittently placed on prednisone for exacerbations. He typically is on prednisone about 3 or 4 times a year. He does not get serial PFTs. He is unclear if he is ever been diagnosed with disseminated sarcoid or hepatosplenic sarcoid. He does not get eye exams on a regular basis. The patient reported increasing shortness of breath. He has inhalers at home that were not offering him a clinical benefit. His doctor again called in a prednisone burst with the patient did not feel he was improving and he presented to the emergency room. He was studied with CT angiogram which showed no evidence of blood clot. Changes consistent with sarcoid were identified. No evidence of parenchymal abnormality concerning for infection. He was placed on antibiotics. He was admitted to the hospital. He is on room air. The patient feels better this morning. He denies fevers chills night sweats or productive cough. No ill contacts. He has not had any new skin lesions. No arthralgias or new joint complaints or swelling. No vision changes or eye pain. The patient lives with his and children at home. 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 He does not have a hot tub at home. No pets. No family history of lung disease that he is aware of. Allergies Allergy/AdvReac Type Severity Reaction Status Date / Time No Known Allergies Allergy Unverified 06/11/21 07:36 Home Medications Medication Instructions Recorded Confirmed Type lisinopril 10 mg tablet 10 mg PO DAILY 10/27/20 06/11/21 History albuterol sulfate 90 mcg/actuation 2 inh inhalation Q6 PRN Shortness 06/11/21 06/11/21 History aerosol inhaler (Ventolin HFA) Of Breath empagliflozin 25 mg tablet 25 mg PO DAILY 05/27/22 05/27/22 History (Jardiance) mometasone-formoterol HFA 100 2 puff inhalation BID 05/27/22 05/27/22 History mcg-5 mcg/actuation aerosol inhaler (Dulera) prednisone 20 mg tablet 40 mg PO DIRECTED 05/27/22 05/27/22 History tiotropium bromide 1.25 1 puff inhalation DAILY 05/27/22 05/27/22 History mcg/actuation mist for inhalation (Spiriva Respimat) Patient History Medical History Asthma HLD (hyperlipidemia) Hypertension Sarcoidosis Type 2 diabetes mellitus Surgical History No pertinent past surgical history Family History Other Heart disease Social History Smoking Status: Never smoker Hx Alcohol Use: Yes Alcohol type: beer Hx Substance Use: No Preferred Language: Bulgarian Communication Ability: Effective Freight Adjuster Required: Yes Beliefs That Will Affect Care: None Current Living Situation: Spouse Other Information That Helps Us Care for You: No Feels Safe at Home: Yes Safety Concerns: Feels Safe At This Time Assistive Devices: None Review of Systems Review of Systems: All systems reviewed & are unremarkable except as noted in Subjective Physical Exam Constitutional: WD/WN, vitals as above Neck: trachea midline, no thyromegaly Respiratory: normal respiratory effort, lungs clear to auscultation Cardiovascular: RRR, no murmur, no edema Gastrointestinal (Abdomen): normal bowel sounds, soft, nontender, no hepatosplenomegaly Musculoskeletal: Extremities: extremities normal to inspection Skin: no rashes, warm and dry Neurologic: Nonfocal exam Lymphatic: no cervical lymphadenopathy Results & Data Results & Data ([facility]) Vital Signs (Past 12 Hours) Vital Signs Temp Pulse Pulse Resp BP BP Pulse Ox 05/27/22 07:35 75 18 94 05/27/22 07:14 90 05/27/22 06:06 36.5 C 161/105 H 05/27/22 06:06 78 21 05/27/22 06:27 36.5 C 79 24 161/105 H 96 05/27/22 05:47 80 20 137/87 95 05/27/22 05:00 77 24 135/87 98 05/27/22 03:20 91 H 19 96 05/27/22 03:10 92 H 22 95 05/27/22 03:10 05/27/22 02:53 36.2 C L 96 H 20 149/108 H 96 O2 Del Method 05/27/22 07:35 Room Air 05/27/22 07:14 05/27/22 06:06 05/27/22 06:06 05/27/22 06:27 Room Air 05/27/22 05:47 Room Air 05/27/22 05:00 Room Air 05/27/22 03:20 05/27/22 03:10 05/27/22 03:10 Room Air 05/27/22 02:53 Room Air Critical Care Results & Data Vital Signs (Past 12 Hours) Vital Signs Temp Pulse Pulse Resp BP BP Pulse Ox 05/27/22 07:35 75 18 94 05/27/22 07:14 90 05/27/22 06:06 36.5 C 161/105 H 05/27/22 06:06 78 21 05/27/22 06:27 36.5 C 79 24 161/105 H 96 05/27/22 05:47 80 20 137/87 95 05/27/22 05:00 77 24 135/87 98 05/27/22 03:20 91 H 19 96 05/27/22 03:10 92 H 22 95 05/27/22 03:10 05/27/22 02:53 36.2 C L 96 H 20 149/108 H 96 O2 Del Method 05/27/22 07:35 Room Air 05/27/22 07:14 05/27/22 06:06 05/27/22 06:06 05/27/22 06:27 Room Air 05/27/22 05:47 Room Air 05/27/22 05:00 Room Air 05/27/22 03:20 05/27/22 03:10 05/27/22 03:10 Room Air 05/27/22 02:53 Room Air Lab & Micro Results (Past 24 Hours) RBC 6.12 M/uL (4.63-6.08) H 05/27/22 WBC 7.66 K/ul (4.8-10.8) 05/27/22 Hgb 17.1 g/dl (14.0-18.0) 05/27/22 Hct 51.1 % (40.1-51.0) H 05/27/22 MCV 83.5 fL (80.0-100.0) 05/27/22 MCH 27.9 pg (25.0-34.0) 05/27/22 MCHC 33.5 g/dL (32.0-36.0) 05/27/22 RDW Standard Deviation 43.1 fL (36.4-46.3) 05/27/22 RDW Coefficient of Variation 14.6 % (11.5-14.5) H 05/27/22 Plt Count 264 K/uL (130-400) 05/27/22 MPV 8.8 fL (9.4-12.4) L 05/27/22 Neutrophils (%) (Auto) 90.0 % 05/27/22 Lymphocytes (%) (Auto) 8.2 % 05/27/22 Monocytes # (Auto) 0.07 K/uL (0.24-0.82) L 05/27/22 Eosinophils # (Auto) 0.01 K/uL (0-0.50) 05/27/22 Immature Granulocyte % (Auto) 0.5 % 05/27/22 Neutrophils # (Auto) 6.89 K/uL (1.4-6.5) H 05/27/22 Lymphocytes # (Auto) 0.63 K/uL (1.2-3.4) L 05/27/22 Monocytes # (Auto) 0.07 K/uL (0.24-0.82) L 05/27/22 Eosinophils # (Auto) 0.01 K/uL (0-0.50) 05/27/22 Basophils # (Auto) 0.02 K/uL (0-0.2) 05/27/22 Immature Granulocyte # (Auto) 0.04 K/uL (0.00-0.02) H 05/27 2 Na 132 mmol/L (136-145) L 05/27/22 K 4.9 mmol/L (3.5-5.1) 05/27/22 Cl 96 mmol/L (98-107) L 05/27/22 CO2 24 mmol/L (21-32) 05/27/22 Anion Gap 12 (3-11) H 05/27/22 BUN 19 mg/dl (6-23) 05/27/22 Creatinine 0.82 mg/dl (0.6-1.4) 05/27/22 Estimated GFR ( Amer) 119.5 ml/min 05/27/22 Estimated GFR (Non-Af Amer) 103.1 ml/min 05/27/22 BUN/Creatinine Ratio 23.2 (10-20) H 05/27/22 Glu 233 mg/dl (70-99(Fasting)) H 05/27/22 Ca 10.3 mg/dl (8.5-10.1) H 05/27/22 Total Bilirubin 0.8 mg/dl (0.2-1.0) 05/27/22 AST 19 U/L (13-39) 05/27/22 ALT 21 U/L (7-52) 05/27/22 Alkaline Phosphatase 183 U/L (34-104) H 05/27/22 TP 8.4 gm/dl (6.0-8.3) H 05/27/22 Albumin 3.6 gm/dl (3.4-5.0) 05/27/22 Globulin 4.8 gm/dl (2.5-4.0) H 05/27/22 Albumin/Globulin Ratio 0.8 (0.9-2) L 05/27/22 Mg Pending 05/27/22 07:22 Calcium Level 10.3 mg/dl (8.5-10.1) H 05/27/22 07:22 Prothromb Time International Ratio Pending 05/27/22 07:2 2 Diagnostic Findings (Past 24 Hours) Chest X-Ray 05/27/22 03:10 XR chest 1V portable CLINICAL HISTORY: Dyspnea. COMPARISON STUDY: Chest radiograph and chest CT June 11, 2021. FINDINGS: No pneumothorax or pleural effusion is present. Cardiomediastinal si lhouette is stable. Bilateral hilar enlargement as well as mediastinal widening are again noted. This is due to lymphadenopathy shown on chest CT. Reticulonodular interstitial thickening is again noted. No consolidation is identified. IMPRESSION: Reticulonodular interstitial thickening and bilateral hilar and mediastinal enlargement due to lymphadenopathy shown on prior chest CT. The findings are suggestive of sarcoidosis. No superimposed consolidation. ACT 112: Negative or not required by law. Electronically signed by: Jakub Garrett M.D. 05/27/2022 7:04 AM Chest CTA 05/27/22 05:22 CT ANGIOGRAPHY OF THE CHEST, PULMONARY EMBOLUS PROTOCOL CLINICAL HISTORY: Right-sided chest pain. Shortness of both breath. COMPARISON STUDY: Chest CT June 11, 2021. Chest radiograph performed earlier today. TECHNIQUE: Following IV administration of 104 mL of Optiray, helical axial images of the chest were obtained utilizing the pulmonary embolus protocol. Maximal intensity projections and sagittal and coronal reformats were viewed on an independent 3D workstation. IV contrast was administered without complication. Automated exposure control was utilized for the study. A dose lowering technique was utilized adhering to the principles of ALARA. CT DOSE: 455.72 mGy.cm FINDINGS: No pulmonary emboli are identified. There is no thoracic aortic dissection. Size of the heart is normal. There is no pericardial effusion. Mild bilateral axillary lymphadenopathy is similar to prior exam. Bulky mediastinal and bilateral hilar lymphadenopathy has slightly decreased since CT of June 11, 2021. Index right paratracheal lymph node on image 183 of 263 measures 2.3 cm in short axis diameter. It previously measured 2.6 cm. Multiple partially calcified lymph nodes are present. There is no pneumothorax or pleural effusion. There is no consolidation to suggest pneumonia. Innumerable small nodules within a lymphatic distribution throughout the lungs have progressed since CT of June 11, 2021. Several nodular irregular opacities within the lungs are similar to prior exam. Central airways are mildly narrowed by the lymphadenopathy but patent. There is no cavitation. Visualized portions of the upper abdomen demonstrate splenomegaly. The liver is cirrhotic appearing. Innumerable hypodense foci within the liver and spleen are again noted. These findings were shown on prior CT. IMPRESSION: 1. No pulmonary emboli identified. 2. Findings suggestive of sarcoidosis within the chest. Progression of innumerable nodules within the lungs with slight decrease in lymphadenopathy. 3. Cirrhotic appearing liver with innumerable lesions within the liver and spleen compression on prior exam. This can also be seen in setting of sarcoidosis. ACT 112: Negative or not required by law. Electronically signed by: Jakub Garrett M.D. 05/27/2022 6:57 AM I & O Totals 24 Hours 05/26/22 05/27/22 05/28/22 06:59 06:59 06:59 Intake Total 325 / 325 Balance 325 / 325 Cumulative 05/27/22 02:52 thru 05/27/22 07:03 Intake Total 325 Balance 325 RT Ventilator Mngmt (Last Documented) Ventilator Ordered Settings Respiratory Rate 18 05/27/22 07:35 Ventilator - PT Measurements Respiratory Rate 18 PG Care Time/CCT Total # of Minutes Spent Total Time Spent with Patient: Total time spent is greater than 50% in coordination of care (as documented) at patient's floor/unit and/or counseling patient: Coding Level of Care Code 99394 Inpt Consult Level 4 Diagnoses Sarcoidosis of lung D86.[address] scan of lung R91.8 Dyspnea R06.00
[2022-05-27 08:36] LABS: INR 1.1 (0.9-1.1); Partial Thromboplastin Ratio 1.2; Partial Thromboplastin Time 32.8 Seconds (21.0-31.0); Prothrombin Time 11.4 Seconds (9.0-12.0)
[2022-05-27] MEDS ORDERED: lisinopril 10 MG TAB PO SCH (09:00)
[2022-05-27] MEDS ORDERED: predniSONE 20 MG TAB PO SCH (09:00)
[2022-05-27] MEDS ORDERED: FLUTICASONE/VILANTEROL 100/25MCG 14 PUFFS/INHALER INH SCH (09:00)
[2022-05-27] MEDS ORDERED: UMECLIDINIUM BROMIDE 62.5MCG/BLISTER 7 PUFFS/INHALER INH SCH (09:00)
[2022-05-27] MEDS ORDERED: methylPREDNISolone 40 MG in SYRINGE 0 ML IV SCH (09:00)
[2022-05-27 09:10] LABS: Magnesium 2.4 mg/dl (1.7-2.4)
[2022-05-27] MEDS ORDERED: LACTATED RINGER'S 1,000 ML IV ONE (10:14)
--- NOTE | 2022-05-27 12:10 | Gastrointestinal Consultation ---
Date of Consultation May 27, 2022 Assessment & Plan (1) Abnormal liver diagnostic imaging: Liver/Spleen sarcoid involvment vs. VENTURA Cirrhosis. (2) RUQ pain: Hx of RUQ post prandial pain. This may represent gallbladder disease vs pressure sensitivity with stretching of the hepatic capsule secondary to hepatomegaly. Liver US was arranged. Results pending. Plan Will arrange OP EUS for liver bx w measurements of portal pressures at [facility]. If suggestion of gallbladder dx then refer to general surgery to consider cholecystectomy. GI will sign off. Please notify us if new/worsening GI issues. Supervising Physician Co-Signing Physician Notes I performed a history and physical examination of the patient today, including specifically on physical exam - soft abdomen. I have discussed the patient's management with the advanced practitioner. Please refer to the nurse practitioner's note for the documented findings and plan of care. EUS with Liver Bx as OP. Recall GI if needed. History of Present Illness Reason for Consultation: Multiple liver lesions in setting of sacroidosis Requesting Physician: Dr. Mejia Attending Physician: Nicanor Ugalde MD History of Present Illness Mr. Lester Duran is a 51 yr old male pt of Dr. Linder w a hx of DM-2, obesity, pulmonary sarcoidosis who presented to the ED early today for SOB and is admitted for sarcoidosis/COPD flare. CTA on admission suggests hepatosplenomegaly and cirrhosis and hypodense lesions in the liver and spleen. He reports sometimes having a yellow color to his eyes, brain fog and fatigue. He also has RUQ discomfort after eating, improved by pressing against that area. He hadn't the pain occurring more after eating high fat foods vs other foods. He is awake. alert oriented and currently comfortable. LFTs on arrival w elevated Alk Phos at 183, Bili and transaminases are normal. Platelets are 64 (though had previously been measures at 190 last year) and Hb is 17. INR is 1.1. Fam Hx + for uncle w cirrhosis but was alcoholic. No fam hx of gallbladder dx. Allergies Allergy/AdvReac Type Severity Reaction Status Date / Time No Known Allergies Allergy Unverified 06/11/21 07:36 Home Medications Medication Instructions Recorded Confirmed Type lisinopril 10 mg tablet 10 mg PO DAILY 10/27/20 06/11/21 History albuterol sulfate 90 mcg/actuation 2 inh inhalation Q6 PRN Shortness 06/11/21 06/11/21 History aerosol inhaler (Ventolin HFA) Of Breath empagliflozin 25 mg tablet 25 mg PO DAILY 05/27/22 05/27/22 History (Jardiance) mometasone-formoterol HFA 100 2 puff inhalation BID 05/27/22 05/27/22 History mcg-5 mcg/actuation aerosol inhaler (Dulera) prednisone 20 mg tablet 40 mg PO DIRECTED 05/27/22 05/27/22 History tiotropium bromide 1.25 1 puff inhalation DAILY 05/27/22 05/27/22 History mcg/actuation mist for inhalation (Spiriva Respimat) Patient History Medical History Asthma HLD (hyperlipidemia) Hypertension Sarcoidosis Type 2 diabetes mellitus Surgical History No pertinent past surgical history Family History Other Heart disease Social History Smoking Status: Never smoker Hx Alcohol Use: Yes Alcohol type: beer Hx Substance Use: No Preferred Language: Yi Communication Ability: Effective Virtualization Consultant Required: Yes Beliefs That Will Affect Care: None Current Living Situation: Spouse Other Information That Helps Us Care for You: No Feels Safe at Home: Yes Safety Concerns: Feels Safe At This Time Assistive Devices: None Review of Systems Review of Systems: ROS: Gen: Denies weakness, fevers, weight loss Eyes: + intermittent yellowing of the eyes. No eye redness, or pain, no recent vision changes Resp: No SOB, no cough Cardio: No palpitations/irregular beats, no chest pain GI: As per HPI, otherwise (-) : Denies pain on urination Skin: No jaundice, itching or new rashes Physical Exam Constitutional: WD/WN, vitals as above Eyes: PERRL, conjunctivae normal, anicteric sclerae ENMT: external ear and nose normal, oropharynx normal Neck: trachea midline, no thyromegaly Respiratory: diminished at the bases but equal bilat, no wheezes or crackles Cardiovascular: RRR, no murmur, no edema Gastrointestinal (Abdomen): Inspection/Auscultation: abdomen normal to inspection and normal bowel sounds; abdomen not distended Percussion/Palpation: + abdomen tender (RUQ tenderness), abdomen soft and + hepatosplenomegaly Skin: no rashes, warm and dry Neurologic: PERRL, EOMI, accommodation nl, no face palsy, no dysarthria Psychiatric: A+Ox3, euthymic affect Lymphatic: no cervical or axillary lymphadenopathy Results & Data ([facility]) Vital Signs (Past 12 Hours) Vital Signs Temp Pulse Pulse Resp BP BP Pulse Ox 05/27/22 08:00 90 05/27/22 07:35 75 18 94 05/27/22 07:14 90 05/27/22 06:06 36.5 C 161/105 H 05/27/22 06:06 78 21 05/27/22 06:27 36.5 C 79 24 161/105 H 96 05/27/22 05:47 80 20 137/87 95 05/27/22 05:00 77 24 135/87 98 05/27/22 03:20 91 H 19 96 05/27/22 03:10 92 H 22 95 05/27/22 03:10 05/27/22 02:53 36.2 C L 96 H 20 149/108 H 96 O2 Del Method 05/27/22 08:00 05/27/22 07:35 Room Air 05/27/22 07:14 05/27/22 06:06 05/27/22 06:06 05/27/22 06:27 Room Air 05/27/22 05:47 Room Air 05/27/22 05:00 Room Air 05/27/22 03:20 05/27/22 03:10 05/27/22 03:10 Room Air 05/27/22 02:53 Room Air Laboratory Results WBC 0.8, AST 19, ALT 21, ALk PHos 183, WBC 7.6, Hb 17, Hct 51, Plts 264, PT 11.1, INR 1.1, Na 132, K 4.9, Cl 96, OC2 24, BUN 11, Cr 0.8, glucose 233 T Bili 0.8, AST 19, ALT 21, ALk Phos 183. Diagnostic Findings CTA 05/27/22: 1. No pulmonary emboli identified. 2. Findings suggestive of sarcoidosis within the chest. Progression of innumerable nodules within the lungs with slight decrease in lymphadenopathy. 3. Cirrhotic appearing liver with innumerable lesions within the liver and spleen compression on prior exam. This can also be seen in setting of sarcoidosis.
--- NOTE | 2022-05-27 14:09 | Ultrasound Report ---
ABDOMINAL ULTRASOUND, RIGHT UPPER QUADRANT HISTORY: liver lesions. COMPARISON: Chest CTA 05/27/2022. Abdomen and pelvis CT 02/01/2017. FINDINGS: Pancreas: The pancreatic tail is obscured by overlying bowel gas. The remaining portions of the pancr eas are within normal limits. A few peripancreatic hypoechoic nodules likely representing lymph nodes . The dominant lymph node measures 2.4 x 1.4 cm. Liver: 20 cm in length. The liver is diffusely heterogeneous. This is likely secondary to the multipl e small hepatic lesions seen on the prior CT examination. A well-defined lesion is difficult to ident st[place] by this modality. Gallbladder: The gallbladder is decompressed. No gallbladder wall thickening. A few small polyps elizabeth uring up to 2 mm. No gallstones. CBD: 5 mm. Right kidney: No hydronephrosis. IMPRESSION: 1. The liver is enlarged and diffusely heterogeneous. This is likely secondary to the multiple small hepatic lesions seen on the prior CT examination. A well-defined lesion is difficult to characterize by this modality. 2. Subcentimeter gallbladder polyps. No gallstones. 3. Peripancreatic lymphadenopathy again noted. ACT 112: Negative or not required by law. Electronically signed by: Mando Starkey M.D. 05/27/2022 2:08 PM
--- NOTE | 2022-05-27 15:07 | Discharge Summary ---
Date of Service May 27, 2022 Admission HPI Per Admitting Provider This is a 51-year-old male with past medical history significant for type 2 diabetes, hyperlipidemia, sinus congestion, history of COPD/Asthma, sarcoidosis, who presents with shortness of breath. The patient says he is getting short of breath since last 2 weeks, it is progressively getting worse. He is not able to ambulate much, because of shortness of breath. He does have pain, he says it is in his lungs, mostly on the right lung, even when taking regular breaths. He has chronic cough, but the cough tone has changed. Denies any fever or chills. Currently, he is saturating okay on room air. He was prescribed prednisone by pulmonary at [place] for 5 days . He just took one dose. As it is not getting better, he came to the hospital here. He currently has some mild headache.No blurred visions, no earache. He has chronic runny nose. Had sore throat the last week a couple of days, but resolved now. No difficulty swallowing. Appetite is okay. No nausea, no vomiting. Has some abdominal pain when he bends down. Has some mild back pain, which is chronic. Normal bowel and bladder movements. Denies any blood in the stools or black stools, no burning micturition. Admission Exam Per Admitting Provider GENERAL: The patient is of moderate build, not in acute distress. VITAL SIGNS: Temperature 36.2, pulse 91, respiratory rate 19, blood pressure 149/108, oxygen 96% on room air. HEENT: Pupils equal, round, and reactive to light. Oral mucosa moist. NECK: No JVD, no neck masses. CARDIOVASCULAR: S1 and S2 heard. Regular rate and rhythm. No murmur, no gallop. RESPIRATORY SYSTEM: Normal AP diameter. Mild bibasilar rales. Currently no wheezing. ABDOMEN: Soft, bowel sounds present, nontender, no distention. CENTRAL NERVOUS SYSTEM: Cranial nerves II-XII grossly intact, nonfocal. EXTREMITIES: Trace pedal edema, no erythema seen Principal Diagnosis exacerbation of pulmonary sarcoidosis Discharge Exam GENERAL: The patient is of moderate build, not in acute distress. HEENT: Pupils equal, round, and reactive to light. Oral mucosa moist. NECK: No JVD, no neck masses. CARDIOVASCULAR: S1 and S2 heard. Regular rate and rhythm. No murmur, no gallop. RESPIRATORY SYSTEM: Normal AP diameter. Mild bibasilar rales. Currently no wheezing. ABDOMEN: Soft, bowel sounds present, nontender, no distention. CENTRAL NERVOUS SYSTEM: Cranial nerves II-XII grossly intact, nonfocal. EXTREMITIES: no pedal edema, no erythema seen Discharge Data Allergies Allergy/AdvReac Type Severity Reaction Status Date / Time No Known Allergies Allergy Unverified 06/11/21 07:36 Consultations 05/27/22 04:38 ED Decision to Admit Stat 05/27/22 08:00 Consult Pulmonology Routine 05/27/22 09:33 Consult Gastroenterology Routine Ordered Studies 05/27/22 05:22 CT angio chest PE protocol Urgent 05/27/22 10:18 US liver Routine Hospital Course (1) Sarcoidosis of lung: Admitted for shortness of breath in the setting of likely pulmonary sarcoidosis exacerbation. No evidence of infection or bronchospasm on exam, tolerating RA. Evaluated by pulmonary who recommended 40mg prednisone until follow up with primary auto air conditioning apprentice (patient reports he has an appointment 06/04/[address] [facility]). Patient had CTA chest as part of ED work up which did not note any PEs but did note innumerable lesions seen in liver as well as cirrhotic appearing liver. GI was consulted due to liver findings and concern for cirrhosis vs disseminated sarcoidosis. They will arrange EUS liver biopsy as outpatient in [facility]. Patient was stable and ok for discharge from pulmonary and GI standpoint and was feeling well from respiratory standpoint, tolerating RA. (2) Abnormal liver diagnostic imaging: Innumerable liver lesions and cirrhotic appearing liver. GI evaluted and will arrange outpatient EUS liver biopsy in [facility]. Total Time Total Time Spent Total Time Spent (In Minutes): 29 Total Time Includes: Examination of the Patient, Discharge Planning, Medication Reconciliation and Communication With Other Providers Discharge Plan Discharge Items Patient Disposition: Home - Self-Care Reason For Visit: SOB Discharge Diagnosis: exacerbation of pulmonary sarcoidosis Activity: Resume your previous activity Non-emergency contact: Primary Care Provider, Geophysics Scientist and [employer] Call non-emergency contact if: you have any medication questions and your symptoms worsen Follow-up/Referrals: Arcadio Linder MD [Primary Care Provider] - (Date & Time 06/02/2022 2:00 PM Provider Arcadio Linder III, MD Department Family Practice [facility] ) Cherise Hopkins MD [Physician] - Gio Muhammad PA-C [Outside Practitioners] - (Date & Time 06/04/2022 2:00 PM Provider Gio Muhammad PA-C Department Pulmonary Medicine [facility] ) Diet: Heart Healthy and Low Sodium (2gm) Addtl Attending Provider Instructions: You were admitted for shortness of breath which is likely from your sarcoidosis and were treated with steroids. You were seen by pulmonology and recommended 40mg prednisone daily until you see your own [employer] Driver (you have appointment for Tuesday06/04/2022). You were also seen by GI because of liver nodules/ lesions noted on your liver on CT scan, which may be from disseminated (or spread of) sarcoidosis. You had an ultrasound which again demonstrated these liver lesions and noted very small (< 1cm) polyps in your gallbladder. GI recommends to follow up with them as an outpatient for a liver biopsy, they will make an appointment for you at [facility] and reach out to you with details. Pending Studies at Discharge: No Stand-Alone Forms: My [facility] [employer], Smoking Cessation Medications and DC Order Prescriptions: New prednisone 20 mg Tablet 20 mg PO BID Qty: 30 0RF Continued lisinopril 10 mg tablet 10 mg PO DAILY albuterol sulfate [Ventolin HFA] 90 mcg/actuation HFA aerosol inhaler 2 inh INHALATION Q6 MDD 8 puffs PRN (Reason: Shortness Of Breath) Dulera 100-5 mcg/actuation HFA aerosol inhaler 2 puff INHALATION BID Jardiance 25 mg tablet 25 mg PO DAILY Spiriva Respimat 1.25 mcg/actuation mist 1 puff INHALATION DAILY Discontinued prednisone 20 mg tablet 40 mg PO DIRECTED Rx Instructions: prednisone 40mg po daily x 5 days Discharge Orders: Discharge Order (Routine); Ordered 05/27/22 Ordered By: Nicanor Salcedo/Other Patient Handouts: Managing Type 2 Diabetes Admission Data Admit Date/Time: 05/27/22 05:22 Attending Provider: Nicanor Ugalde Admit Provider: Jose Clayton Primary Care Provider: Arcadio Linder Other Providers: Jose Clayton ; Kelby Seaman ; Cherise Hopkins Other Interventions: Discharge Summary Assessment (RN) Last Done: 05/27/22 14:49
--- NOTE | 2022-05-28 05:35 | Electrocardiogram Report ---
Test Reason : Blood Pressure : / mmHG Vent. Rate : 093 BPM Atrial Rate : 093 BPM P-R Int : 148 ms QRS Dur : 082 ms QT Int : 372 ms P-R-T Axes : 047 010 047 degrees QTc Int : 462 ms Normal sinus rhythm Normal ECG When compared with ECG of 11-JUN-2021 06:37, No significant change was found Confirmed by Gerry Layne ([id number]) on 05/28/2022 5:35:09 AM Referred By: REFERRED SELF Confirmed By:Gerry Layne
[2022-05-28] MEDS ORDERED: cefTRIAXone SODIUM 2,000 MG in DEXTROSE 5% 50 ML IV SCH (09:00)
== END 2022-05-27 15:16 | disposition home or self-care (01) ==
LOC: ED 02:52 → SUATTDRO 05:22 → INTOOBSV 05:22 → 1E 05:22
DX: Z79.51 Long term (current) use of inhaled steroids; E11.9 Type 2 diabetes mellitus without complications; K76.9 Liver disease, unspecified; Z28.310 Unvaccinated for COVID-19; R93.2 Abnormal findings on diagnostic imaging of liver and biliary tract; D86.0 Sarcoidosis of lung; Z79.899 Other long term (current) drug therapy; I10 Essential (primary) hypertension; R07.9 Chest pain, unspecified